=== PATIENT | female | born 1950 | race African-American/Black ===

== ENCOUNTER → 2017-10-11 | Outpatient (CLI) | payer BC ==
[~2017-10-11] MED LIST: ASCA500 PO; ATOR-14 PO; CHOL100027 PO; CRDCD180 PO; Citracal PO; ENOX40IN SQ; LISI-725 PO; MEGARED KRILL OIL PO; MULTTAB58 PO; OXYC-292 PO; Osteo Bi-Flex PO
--- NOTE | 2017-10-11 14:12 | MAMMOGRAPHY REPORT ---
BILATERAL DIGITAL SCREENING MAMMOGRAM TOMOSYNTHESIS WITH CAD: 10/11/2017 CLINICAL HISTORY: Routine screening. TECHNIQUE: Breast tomosynthesis in addition to standard 2D mammography was performed. Current study was also evaluated with a Computer Aided Detection (CAD) system. COMPARISON: Comparison is made to exams dated: 10/10/2016 mammogram, 10/01/2015 mammogram, 09/29/2014 mammogram, 09/25/2013 mammogram, 09/19/2012 mammogram - [facility], and 10/13/2011 mammogram - [facility]. BREAST COMPOSITION: The tissue of both breasts is heterogeneously dense, which may obscure small mas ses. FINDINGS: The parenchymal pattern is similar to prior mammograms. There are scattered stable benign -appearing round microcalcifications. No developing mass, architectural distortion or cluster of junior picious microcalcifications is seen in either breast. IMPRESSION: ACR BI-RADS CATEGORY 2: BENIGN There is no mammographic evidence of malignancy. A 1 year screening mammogram is recommended. The pa tient will receive written notification of the results. Approximately 10% of breast cancers are not detected with mammography. A negative mammographic report should not delay biopsy if a clinically suggestive mass is present. Cony Loredo M.D. ay/:10/11/2017 10:17:37 Senior [employer] Net Developer: Joseph SERRANO)(Rudy), [facility] letter sent: Normal 1/2 BI-RADS Code: ACR BI-RADS Category 2: Benign
== END | disposition home or self-care (01) ==
LOC: C.MAMM 09:47
PROVIDERS: ATTEND Family Medicine
DX: Z12.31 Encounter for screening mammogram for malignant neoplasm of breast (principal)

== ENCOUNTER → 2017-12-02 | Outpatient (CLI) | payer BC ==
--- NOTE | 2017-12-02 12:28 | DIAGNOSTIC IMAGING REPORT ---
CHEST 2 VIEWS ROUTINE CLINICAL HISTORY: 67 years-old Female presenting with COUGH. TECHNIQUE: PA and lateral views of the chest were obtained. COMPARISON: 11/05/2012. FINDINGS: Cardiomediastinal silhouette normal. Lungs and pleural spaces clear. Osseous structures normal. Upper abdomen normal. IMPRESSION: 1. No acute cardiopulmonary disease. Electronically signed by: Aries Simon M.D. 12/02/2017 12:27 PM Dictated Date/Time: 12/02/2017 12:26 PM
== END | disposition home or self-care (01) ==
LOC: C.RAD 12:07
PROVIDERS: ATTEND Family Medicine
DX: R05 Cough (principal)

== ENCOUNTER 2018-01-30 05:11 | Inpatient (IN) | payer BC, OTHER ==
[2018-01-11 09:01] VITALS: BMI 27.0
--- NOTE | 2018-01-11 09:36 | PAT Medication Instructions ---
Service Date Jan 11, 2018. Current Home Medication List Ascorbic Acid (Ascorbic Acid), 500 MG PO QAM Atorvastatin (Lipitor), 10 MG PO QAM Calcium Carbonate-Vitamin D (Calcium + D), 2 TAB PO QAM Cholecalciferol (Vitamin D-3), 1 TAB PO QAM Oawtqzomngy-Iqqpxfifxug-In Cho (Glucosamine Chondroitin &), 1 TAB PO QAM Lisinopril (Zestril), 20 MG PE PO QAM Metoprolol Succinate (Metoprolol Succinate ER), 1 TAB PO QAM Multiple Vitamin (Multivitamin), 1 TAB PO QAM Medication Instructions For Your Scheduled Surgery - Hold the following medications 2 weeks prior to surgery: Yyirwvbsfch-Gavfkdheguq-Kz Cho (Glucosamine Chondroitin &), 1 TAB PO QAM - Hold the following medications the morning of surgery: Multiple Vitamin (Multivitamin), 1 TAB PO QAM Lisinopril (Zestril), 20 MG PE PO QAM Cholecalciferol (Vitamin D-3), 1 TAB PO QAM Calcium Carbonate-Vitamin D (Calcium + D), 2 TAB PO QAM Ascorbic Acid (Ascorbic Acid), 500 MG PO QAM - Take the following medications the morning of surgery with a sip of water: Atorvastatin (Lipitor), 10 MG PO QAM Metoprolol Succinate (Metoprolol Succinate ER), 1 TAB PO QAM Amlodipine 10mg daily If you have any questions please call us at [phone] or [phone] or [phone]
[2018-01-11 10:18] LABS: BASO % 0.6 %; BASO ABS # 0.04 K/uL (0-0.2); EOS % 1.9 %; EOS ABS # 0.13 K/uL (0-0.5); HEMATOCRIT 44.7 % (37-47); HEMOGLOBIN 15.2 g/dL (12.0-16.0); IG# 0.01 K/uL (0.00-0.02); LYMPH % 28.1 %; LYMPH ABS # 1.89 K/uL (1.2-3.4); MEAN CELL VOLUME 86.8 fL (80-100); MEAN CORPUSCULAR HEMOGLOBIN 29.5 pg (25-34); MEAN PLATELET VOLUME 10.5 fL (7.4-10.4); MONO % 6.7 %; MONO ABS # 0.45 K/uL (0.11-0.59); NEUT % 62.6 %; NEUT ABS # 4.21 K/uL (1.4-6.5); PLATELET COUNT 194 K/uL (130-400); RED CELL DISTRIBUTION WIDTH CV 15.5 % (11.5-14.5); RED CELL DISTRIBUTION WIDTH SD 49.8 fL (36.4-46.3); WHITE BLOOD COUNT 6.73 K/uL (4.8-10.8)
[2018-01-11 10:26] LABS: PTT PATIENT 27.5 SECONDS (21.0-31.0)
[2018-01-11 10:59] LABS: HEMOGLOBIN A1C 6.3 % (4.5-5.6)
[2018-01-11 11:27] LABS: ALBUMIN 3.9 gm/dl (3.4-5.0); CALCIUM 9.9 mg/dl (8.5-10.1); CREATININE 1.1 mg/dl (0.60-1.20); POTASSIUM 3.5 mmol/L (3.5-5.1)
--- NOTE | 2018-01-18 10:04 | HISTORY & PHYSICAL EXAMINATION ---
DATE OF ADMISSION: 01/30/2018 CHIEF COMPLAINT: Right knee pain. HISTORY OF PRESENT ILLNESS: Ms. Guerra is a 67-year-old female with a 2-3 month history of worsening right knee pain. The patient rates her pain at 4/10. She has pain with her daily activities. She has limited standing and walking tolerance. Pain is worse with weightbearing. The patient has had Tylenol and home exercise program which she has failed. She is now scheduled for right knee replacement. PAST MEDICAL HISTORY: Hypertension. She denies heart disease, diabetes or DVT. PAST SURGICAL HISTORY: Left TKA and hysterectomy. SOCIAL HISTORY: The patient rarely drinks alcohol. She denies current tobacco use. She lives in a single story home. She is and retired. FAMILY HISTORY: Negative for DVT. MEDICATIONS: Amlodipine 10 mg daily, atorvastatin 10 mg daily, lisinopril 20 mg daily, metoprolol 25 mg daily. ALLERGIES: SULFA, PENICILLIN, CEPHALEXIN, METHIMAZOLE, AND TRIMETHOPRIM. REVIEW OF SYSTEMS: See HPI. Ten other systems reviewed, all negative. PHYSICAL EXAMINATION: VITAL SIGNS: Height 5 foot 4 inches, weight 158 pounds, BMI 27. GENERAL: This is a well-developed, well-nourished -Serbian female who is alert and oriented x3. Mood and affect are appropriate. HEENT: Normocephalic, atraumatic. Mucous membranes are moist and intact. She does have a palpable thyroid goiter. NECK: Supple without lymphadenopathy. HEART: Regular rate and rhythm without murmurs, rubs or gallops. LUNGS: Clear to auscultation without wheezes or rhonchi. ABDOMEN: Soft and nontender. Bowel sounds are equal and active. EXTREMITIES: No ecchymosis, redness or warmth. Thigh and calf are soft and nontender. She has neutral alignment. Range of motion is from 0-120 degrees. She has no laxity. She is neurovascularly intact with +5/5 strength. IMPRESSION: Degenerative joint disease, right knee. PLAN: The patient will be admitted for a right total knee arthroplasty. We will plan on aspirin for DVT prophylaxis. She will have [facility] for home physical therapy upon discharge.
[2018-01-30] VITALS (9 sets, daily range): BP systolic 104–158; BP diastolic 66–99; PULSE 76–107; TEMP 36.4–36.8; O2SAT 97–100; Ht 162.6 cm; Wt 71.0 kg
[~2018-01-30] VITALS: Ht 162.6 cm; Wt 71.0 kg
[~2018-01-30 05:11] MED LIST changes: +AMLO-114 PO; -ASCA500 PO; +ASCO500T16 PO; -ATOR-14 PO; +ATOR10TA82 PO; +CALC600T9 PO; -CHOL100027 PO; +CHOL200027 PO; -CRDCD180 PO; -Citracal PO; -ENOX40IN SQ; +GLUCTAB32 PO; -MEGARED KRILL OIL PO; -OXYC-292 PO; -Osteo Bi-Flex PO; +TPRSR/25 PO
[2018-01-30] MEDS ORDERED: ROPIVACAINE 5MG/ML 30 ML 150 MG, BUPIVACAINE 0.5% MPF INJ 30 ML, EpINEphrine HCL INJ 0.... INFIL SCH ×8 (06:00)
[2018-01-30] MEDS ORDERED: METOCLOPRAMIDE HCL 10 MG TAB PO SCH (06:00)
[2018-01-30] MEDS ORDERED: FAMOTIDINE 20 MG TAB PO SCH (06:00)
[2018-01-30] MEDS ORDERED: GABAPENTIN 300 MG CAP PO SCH (06:00)
[2018-01-30] MEDS ORDERED: ACETAMINOPHEN 500 MG TAB PO SCH (06:00)
[2018-01-30] MEDS ORDERED: DEXAMETHASONE 4 MG TAB PO SCH (06:00)
[2018-01-30] MEDS ORDERED: LACTATED RINGER'S 1000ML 500 ML IV SCH (06:00)
[2018-01-30] MEDS ORDERED: CLINDAMYCIN 600 MG/54 ML D5W 54 ML IV SCH (06:00)
[2018-01-30] MEDS ORDERED: LACTATED RINGER'S 1000ML 1,000 ML IV SCH (06:00)
[2018-01-30] MEDS ORDERED: BUPIVACAINE 0.5 % 5 MG/1 ML PF 10ML VIAL ONE (06:22)
[2018-01-30] MEDS ORDERED: BUPIVACAINE 0.25% 30 ML VIAL ONE (06:22)
[2018-01-30] MEDS ORDERED: MIDAZOLAM HCL 1 MG/ML 2ML VIAL ONE (06:51)
[2018-01-30] MEDS ORDERED: ORTHO JOINT ANESTHETIC ONE (06:57)
[2018-01-30] MEDS ORDERED: BACITRACIN 50000 UNIT VIAL ONE (06:57)
[2018-01-30] MEDS ORDERED: POVIDONE-IODINE OP SOLN 30 ML BTL ONE (06:57)
--- NOTE | 2018-01-30 07:05 | History & Physical Bridge Note ---
H&P Re-Evaluation Bridge Note: I have examined the patient, reviewed the History & Physical and in the interval since the performance of the History & Physical I have noted the following changes of clinical significance: No changes noted
[2018-01-30] MEDS ORDERED: LIDOCAINE HCL 2% 2 ML VIAL (20MG/ML) ONE (08:11)
[2018-01-30] MEDS ORDERED: PROPOFOL IV EMULSION 10 MG/ML 20 ML VIAL IV ONE ×2 (08:11→08:14)
--- NOTE | 2018-01-30 08:14 | [facility] Operative Report ---
Operative Report Operative Date Jan 30, 2018. Pre-Operative Diagnosis Right knee degenerative joint disease Post-Operative Diagnosis Right knee degenerative joint disease Procedure(s) Performed Right Total Knee Arthroplasty utilizing journey to patient matched total knee arthroplasty utilizing size 4 femur 3 tibia 15 Rere [address] Rodriguez Community Health Coordinator Surgeon(s) Alberto Ceja PA-C Estimated Blood Loss 5 ml Findings Patient presents with severe end-stage tricompartmental degenerative joint disease varus alignment subchondral sclerosis osteophyte formation subchondral cystic changes no response to conservative therapy including injections anti- inflammatories relative rest activity modification Specimens A: Right knee bone and tissue Anesthesia Type MAC Spinal Regional Complication(s) none Disposition Recovery Room / PACU Indications Patient presents after failing attempts to conservative management x-rays will be able to subchondral sclerosis marginal osteophytes cystic changes varus alignment bone the bone changes medial compartment patellofemoral compartment patient presents for total knee arthroplasty Description of Procedure After proper prepping and draping of the Right lower extremity anterior midline incision was made over the region of the extensor extensor mechanism after meticulous hemostasis was obtained and maintained in subcutaneous tissues a medial parapatellar incision was made The patella was subluxed lateralward the medial lateral gutter were cleaned from any hypertrophic synovitis and scar tissue of the distal femoral block was placed and the distal femoral osteotomy cut was made subsequently the chamfers anterior and posterior osteotomy cuts were made utilizing the 4-in-1 block the tibia was subsequently subluxed anteriorward medial and ateral meniscal remnants were excised in their entirety remnants of the anterior and posterior cruciate ligaments were excised in their entirety excellent exposure of the proximal tibia was obtained the tibial osteotomy guide was placed on the proximal tibial osteotomy cut was made once again the knee was irrigated with copious amounts of sterile saline solution the patella was subsequently everted lateralward thickened scar tissue around the patella was removed the patella was subsequently cut utilizing a freehand technique and was drilled prepared for final preparation and placement of patella socially flexion-extension gaps were checked and the equal and symmetric trials were placed to the appropriate femoral and tibial trials with poly-spacer being placed for equal flexion and extension gaps and full range of motion including extension to 0 and flexion to 140 the trial components after having been taken to recovery range of motion was subsequently removed meticulous hemostasis was obtained and maintained subsequently a knee block injection of joint cocktail including ropivacaine 0.5% 150 mg. Bupivacaine 0.5 % epinephrine 1-200,030 mL's toradol 30 mg dexamethasone 4 mg ketamine 10 mg clonidine 100 micrograms normal saline solution 30 mg was infiltrated into the soft tissues of the posterior knee medial lateral gutters and periosteal synovium special attention was paid to protect neurovascular structures at all times subsequently trial components having been removed the knee was irrigated with sterile saline solution. debris was removed the proximal tibia was subsequently prepared and was made ready for the placement of the tibial component tibial component was also cemented and tamped into position the femoral component was subsequently placed and cemented in the position the patellar component was subsequently cemented in position because hemostasis once again obtained and maintained wound having been thoroughly irrigated with debridement and debridement lavage was performed as well as a medial parapatellar incision closed with #1 Vicryl in interrupted fashion subcutaneous was closed with #2 Vicryl skin was closed with skin clips. PA-C was necessary for prepping and drapping as well as wound closure of deep fascia Sub cutaneous tissue and skin and was necessary for the case. A sterile compressive dressing was placed patient was taken to recovery in stable condition of report dictated by Michael I attest to the content of the Intraoperative Record and any orders documented therein. Any exceptions are noted below. I attest to the content of the Intraoperative Record and any orders documented therein. Any exceptions are noted below.
[2018-01-30] MEDS ORDERED: EpHEDrine SULFATE INJ 50 MG/ML AMP IV PRN (08:45)
[2018-01-30] MEDS ORDERED: ATROPINE SULFATE 0.1 MG/ML 5ML SYR IV PRN (08:45)
[2018-01-30] MEDS ORDERED: TRAMADOL HCL 50 MG TAB PO PRN (09:00)
[2018-01-30] MEDS ORDERED: KETOROLAC TROMETHAMINE 15 MG/ML VIAL IV. PRN (09:00)
[2018-01-30] MEDS ORDERED: BISACODYL 10 MG SUPP PR PRN (09:00)
[2018-01-30] MEDS ORDERED: ZOLPIDEM TARTRATE 5 MG TAB PO PRN (09:00)
[2018-01-30] MEDS ORDERED: SOD PHOSPHATE/SOD BIPHOSPHATE ENEMA 132 ML BTL PR PRN (09:00)
[2018-01-30] MEDS ORDERED: MoRPHine SULFATE 2 MG/ML CARP IV PRN (09:00)
[2018-01-30] MEDS ORDERED: ONDANSETRON INJ 2 MG/ML 2 ML VIAL IV PRN (09:00)
[2018-01-30] MEDS ORDERED: ALUMINUM/MAGNESIUM/SIMETH (MAALOX MAX) 30 ML UDC PO PRN (09:00)
[2018-01-30] MEDS ORDERED: OXYCODONE HCL IR 5 MG TAB (IMMEDIATE RELEASE) PO PRN (09:00)
[2018-01-30] MEDS ORDERED: METOPROLOL SUCC 25MG EXT REL TAB PO SCH (09:00)
[2018-01-30] MEDS ORDERED: MAGNESIUM HYDROXIDE SUSP 30 ML UDC PO PRN (09:00)
--- NOTE | 2018-01-30 09:20 | DIAGNOSTIC IMAGING REPORT ---
RIGHT KNEE 2 VIEWS History: Right total knee arthroplasty. Degenerative arthritis. Postop. FINDINGS: The patient is status post a right total knee arthroplasty. The hardware is intact. No fracture or dislocation. Surgical drains are in place. IMPRESSION: Right total knee arthroplasty. No evidence for hardware complication. Electronically signed by: Alex Schwartz M.D. 01/30/2018 9:18 AM Dictated Date/Time: 01/30/2018 9:18 AM
--- NOTE | 2018-01-30 09:44 | Anesthesiology Progress Note ---
Anesthesia Post Op Note Date & Time Jan 30, 2018 at 09:44 Vital Signs Pain Intensity: 0 Vital Signs Past 12 Hours Date Time Temp Pulse Resp B/P (MAP) Pulse Ox O2 Delivery O2 Flow Rate FiO2 01/30/18 09:30 36.8 91 15 106/72 99 Nasal Cannula 2 01/30/18 09:25 90 25 100/71 99 Nasal Cannula 2 01/30/18 09:15 87 19 105/70 99 Nasal Cannula 2 01/30/18 09:05 93 16 101/69 100 Oxymask 10 01/30/18 08:55 36.2 99 16 90/54 97 Oxymask 10 01/30/18 05:49 36.8 107 18 158/99 98 Room Air Notes Mental Status: alert / awake / arousable, participated in evaluation Pt Amnestic to Procedure: Yes Nausea / Vomiting: adequately controlled Pain: adequately controlled Airway Patency, RR, SpO2: stable & adequate BP & HR: stable & adequate Hydration State: stable & adequate Neuraxial Anesthesia: was administered, sensory block is resolving Anesthetic Complications: no major complications apparent
[2018-01-30] MEDS ORDERED: MoRPHine SULFATE 4 MG/ML 1 ML CARP\\VIAL IV PRN (10:30)
[2018-01-30] MEDS ORDERED: MoRPHine SULFATE 10 MG/ML CARP/VIAL IV PRN (10:30)
[2018-01-30] MEDS: D5W AND 1/2NSS + 20MEQ KCL 1,000 ML IV SCH ×2 (12:09→20:43)
[2018-01-30] MEDS: TRANEXAMIC ACID INJ 1,000 MG x 2 Bags IV SCH ×4 (13:13→13:15)
[2018-01-30] MEDS: MULTIVITAMIN TAB PO SCH (13:14)
[2018-01-30] MEDS ORDERED: PNEUMOCOCCAL POLYSACCHARIDES 25 MCG/0.5 ML VIAL/SYR IM. ONE (13:45)
[2018-01-30] MEDS ORDERED: PNEUMOCOCCAL ADMINISTRATION CHARGE ONE (13:45)
[2018-01-30] MEDS: ASCORBIC ACID 500 MG TAB PO SCH (14:05)
[2018-01-30] MEDS: ACETAMINOPHEN 500 MG TAB PO SCH ×2 (14:06→20:43)
[2018-01-30] MEDS: CLINDAMYCIN IV 600 MG in DEXTROSE 5% 50ML 50 ML IV SCH ×2 (17:04→23:01)
[2018-01-30] MEDS: ASPIRIN 81 MG ECTAB PO SCH (20:42)
[2018-01-30] MEDS: DOCUSATE SODIUM 100 MG CAP PO SCH (20:43)
[2018-01-30] MEDS ORDERED: SENNA 8.6 MG TAB PO SCH (21:00)
[2018-01-31 03:23] VITALS: BP 118/76; PULSE 87; TEMP 36.5; O2SAT 99
[2018-01-31] MEDS: ACETAMINOPHEN 500 MG TAB PO SCH (05:38)
[2018-01-31] MEDS: D5W AND 1/2NSS + 20MEQ KCL 1,000 ML IV SCH (05:38)
[2018-01-31 06:09] LABS: HEMATOCRIT 37.8 % (37-47); HEMOGLOBIN 12.6 g/dL (12.0-16.0); MEAN CELL VOLUME 85.7 fL (80-100); MEAN CORPUSCULAR HEMOGLOBIN 28.6 pg (25-34); MEAN CORPUSCULAR HGB CONC 33.3 g/dl (32-36); PLATELET COUNT 186 K/uL (130-400); RED CELL DISTRIBUTION WIDTH CV 15.4 % (11.5-14.5); WHITE BLOOD COUNT 18.01 K/uL (4.8-10.8)
[2018-01-31 06:46] LABS: CALCIUM 9.1 mg/dl (8.5-10.1); CREATININE 0.92 mg/dl (0.60-1.20)
--- NOTE | 2018-01-31 07:22 | Orthopedic Progress Note ---
Orthopedic Progress Note Date of Service Jan 31, 2018. Subjective Post OP Day: 1 (right TKA) Reports: feeling well, pain controlled w PO medications, Denies: complaints, chest pain, SOB, nausea / vomiting, light headedness, calf pain Objective calves soft nontender, N/V intact, capillary refill less than 2 sec., dressing C /D/I, A&O x3, toes mobile, hemovac drainage (75cc/8 hours) Date Time Temp Pulse Resp B/P (MAP) Pulse Ox O2 Delivery O2 Flow Rate FiO2 01/31/18 03:23 36.5 87 14 118/76 (90) 99 Room Air 01/30/18 23:20 36.7 89 14 117/73 (88) 97 Room Air 01/30/18 19:33 36.7 96 17 112/66 (81) 98 Room Air 01/30/18 19:20 Room Air 01/30/18 17:39 Room Air 01/30/18 15:53 36.8 89 17 114/74 (87) 97 Room Air 01/30/18 12:59 92 17 116/73 (87) 99 Nasal Cannula 2.0 01/30/18 11:50 76 16 104/68 (80) 100 01/30/18 10:52 84 16 106/69 (81) 99 Nasal Cannula 2.0 01/30/18 10:20 36.4 79 16 116/71 (86) 98 Nasal Cannula 2.0 01/30/18 09:50 97 Nasal Cannula 2.0 01/30/18 09:50 36.4 85 20 112/72 (85) 97 Nasal Cannula 2.0 01/30/18 09:50 97 Nasal Cannula 2.0 01/30/18 09:30 36.8 91 15 106/72 99 Nasal Cannula 2 01/30/18 09:25 90 25 100/71 99 Nasal Cannula 2 01/30/18 09:15 87 19 105/70 99 Nasal Cannula 2 01/30/18 09:05 93 16 101/69 100 Oxymask 10 01/30/18 08:55 36.2 99 16 90/54 97 Oxymask 10 Laboratory Results 24 Hours: Test 01/31/18 05:43 Hematocrit 37.8 % Hemoglobin 12.6 g/dL Prothromb Time International Ratio 1.0 Prothrombin Time 10.7 SECONDS Assessment & Plan Assessment: POD #1 s/p Right TKA pt/ot dvt proph with genaro/scd/asa plan for dc home with HHPT with [facility], likely after PT today Discharge Planning Discharge Planning: home with home health DVT Prophylaxis: TEDs, SCDs, ASA Therapy: Physical Therapy
--- NOTE | 2018-01-31 07:24 | Discharge Instructions ---
Discharge Instructions Date of Service Jan 31, 2018. Admission Reason for Admission: Right Knee Osteoarthritis Discharge Discharge Diagnosis / Problem: right total knee replacement Discharge Goals Goal(s): Decrease discomfort, Improve function, Increase independence Activity Recommendations Activity Limitations: as noted below Weightbearing Status: Right weightbearing (as tolerated) . Instructions / Follow-Up Instructions / Follow-Up ACTIVITY RECOMMENDATIONS: SELF CARE INSTRUCTIONS AFTER TOTAL KNEE REPLACEMENT A. You may need to continue a physical therapy program after discharge from the hospital. There are several options available to you. Your doctor will assist you in selecting the best one for you. 1. An out-patient facility 2 to 3 times a week for therapy or home therapy. 2. Continue working on all exercises taught to you in the hospital. Your goals should be to increase bending of your knee to 90 degrees and beyond and to fully straighten your knee. B. You may progress at your own pace from walking with a walker or crutches to a cane; then to no assistive devices. C. Make walking a part of your daily routine. Be up as much as comfortable with rest periods throughout the day. Rest with leg elevation is very important. Use the ice wrap frequently for the first 3-4 weeks. D. There are no restrictions on activities. You may ride in a car, shop, participate in government contracts manager and all social activities. E. Wear the long elastic stockings (FRANKY hose) 20 hours a day for 2 weeks after surgery. They can be removed several times a day for laundering and for a bath. F. You may shower, no tub baths until cleared by your doctor. SPECIAL CARE INSTRUCTIONS: VERY IMPORTANT TO READ AND REVIEW A. There are a few signs you need to watch for after you are home. Call [facility] [place] if you notice any of the followin. Increased severe knee pain. Some pain is expected especially when you exercise. 2. Increased swelling in your leg or knee; pain or swelling of the calf muscle in either lower leg. 3. Any fluid drainage from the incision. 4. Shortness of breath or chest pain. B. Please call [facility] at if you have any concerns or questions about your operation or recovery. The doctor or his nurse will return your call promptly. C. You must take antibiotics before dental work, bladder, bowel or other surgery. Your doctor will provide you with a permanent care to carry describing this precaution. IMPORTANT: * REMEMBER TO TAKE ASPIRIN, 81 MG, TWICE DAILY FOR 4 WEEKS UNLESS OTHERWISE DIRECTED. THIS IS YOUR BLOOD THINNER. * HIGH RISK PATIENTS MAY BE PRESCRIBED A STRONGER BLOOD THINNER. THIS WILL BE PROVIDED AT DISCHARGE. * CALL IF INCREASED PAIN, REDNESS, DRAINAGE OR FEVER GREATER THAT 101. * WEAR FRANKY HOSE 20 HOURS PER DAY FOR 2 WEEKS. * DERMABOND Prineo- This is a mesh tape dressing that is covered with glue. It should remain in place until the incision is properly healed, usually 10-14 days. This dressing is designed to naturally slough off. You may trim the excess mesh tape as it peels off. Incision may be briefly wet in a shower. Dry immediately by blotting with a clean, dry towel. Do not bath or swim until instructed by your doctor. Do not scratch, rub, or pick at the dressing. Do not apply any topical ointments or lotions until dressing is completely removed and/or instructed by your doctor. There may be a small piece of suture material at one end of your incision. Do not pull or trim this. If it is bothersome or catching on clothing, you may cover it with a band-aid. FOLLOW UP VISIT: If appointment is not already scheduled: Please call [facility] [place] to make a follow-up appointment for 2 weeks after your surgery at . Current Hospital Diet Patient's current hospital diet: Regular Diet Discharge Diet Recommended Diet: Regular Diet Procedures Procedures Performed: Right Total Knee Arthroplasty utilizing journey to patient matched total knee arthroplasty utilizing size 4 femur 3 tibia 15 Rere 29 oval patella Pending Studies Studies pending at discharge: no Laboratory Results Hemoglobin A1c Test 01/11/18 09:50 Range/Units Estimated Average Glucose 134 mg/dl Hemoglobin A1c 6.3 H 4.5-5.6 % Medical Emergencies . Who to Call and When: Medical Emergencies: If at any time you feel your situation is an emergency, please call 911 immediately. . Non-Emergent Contact Non-Emergency issues call your: Primary Care Provider, Surgeon . "Provider Documentation" section prepared by Alberto Ceja. . [place] Drug Monitoring Program Search Results: patient reviewed within database, no issues identified
[2018-01-31] MEDS ORDERED: CLC100 PO (07:26)
[2018-01-31] MEDS ORDERED: ONDA-170 PO (07:26)
[2018-01-31] MEDS ORDERED: RXC5 PO (07:26)
[2018-01-31] MEDS ORDERED: ACET-24 PO (07:26)
[2018-01-31] MEDS ORDERED: ASPEC81 PO (07:26)
[2018-01-31 07:29] VITALS: BP 130/82; PULSE 84; TEMP 36.6; O2SAT 98
--- NOTE | 2018-01-31 07:30 | Discharge Summary ---
Orthopedic Discharge Summary Admission Date/Reason Jan 30, 2018 at 06:45 Right Knee Osteoarthritis. Discharge Date/Disposition Jan 31, 2018 Home with services Diagnosis Principal Diagnosis: Right knee osteoarthritis Procedure(s) Performed Right Total Knee Arthroplasty utilizing journey to patient matched total knee arthroplasty utilizing size 4 femur 3 tibia 15 Rere 29 oval patella Consultations NONE Medication Reconciliation New Medications: Ondansetron Hcl (Zofran) 8 Mg Tab 8 MG PO Q8 PRN for Nausea, #20 TAB Acetaminophen (Sb Non-Aspirin Extra Stre) 500 Mg Tab 1000 MG PO Q8H, #63 TAB Aspirin (Aspirin EC Low Dose) 81 Mg Ectab 81 MG PO BID for 30 Days, #60 TAB Docusate Sodium (Docusate Sodium) 100 Mg Cap 100 MG PO BID for 10 Days, #20 CAP Oxycodone HCl (Oxycodone HCl) 5 Mg Tab 5-10 MG PO Q4H PRN for Pain, #60 TAB Continued Medications: Amlodipine (Norvasc) 10 Mg Tab 10 MG PO DAILY, TAB Ascorbic Acid (Ascorbic Acid) 500 Mg Tab 500 MG PO QAM, TAB Atorvastatin (Lipitor) 10 Mg Tab 10 MG PO QAM, TAB Calcium Carbonate-Vitamin D (Calcium + D) 1 Tab Tab 2 TAB PO QAM Cholecalciferol (Vitamin D-3) 2,000 Unit Tab 1 TAB PO QAM Lisinopril (Zestril) 20 Mg Tab 20 MG PE PO QAM Metoprolol Succinate (Metoprolol Succinate ER) 25 Mg Tabcr 1 TAB PO QAM Multiple Vitamin (Multivitamin) 1 Tab Tab 1 TAB PO QAM, TAB Discontinued Medications: Aimuraldnzj-Dlfykcfeudy-Hu Cho (Glucosamine Chondroitin &) 1 Tab Tab 1 TAB PO QAM Admission Physical Exam As per Admitting History & Physical. Hospital Course Patient was a same day admission after undergoing a successful right TKA. She tolerated the procedure well. Post-operatively, her activity was progressed and well tolerated. Please refer to daily progress notes and PT notes for complete details. After exam on 01/31/18, patient felt to be stable for discharge home with HHPT, pain was well controlled, drain output within acceptable limits. Patient will f/u in the office in 2 weeks for further evaluation including x- rays and incision check, sooner if having any issues or concerns. Below are pertinent labs/studies during their hospital stay: Last Vital Signs Documentation Date Time Temp Pulse Resp B/P (MAP) Pulse Ox O2 Delivery O2 Flow Rate FiO2 01/31/18 03:23 36.5 87 14 118/76 (90 99 Room Air 01/30/18 12:59 2.0 Last Resulted CBC 01/31/18 05:43 Last Resulted BMP 01/31/18 05:43 Discharge Instructions ACTIVITY RECOMMENDATIONS: SELF CARE INSTRUCTIONS AFTER TOTAL KNEE REPLACEMENT A. You may need to continue a physical therapy program after discharge from the hospital. There are several options available to you. Your doctor will assist you in selecting the best one for you. 1. An out-patient facility 2 to 3 times a week for therapy or home therapy. 2. Continue working on all exercises taught to you in the hospital. Your goals should be to increase bending of your knee to 90 degrees and beyond and to fully straighten your knee. B. You may progress at your own pace from walking with a walker or crutches to a cane; then to no assistive devices. C. Make walking a part of your daily routine. Be up as much as comfortable with rest periods throughout the day. Rest with leg elevation is very important. Use the ice wrap frequently for the first 3-4 weeks. D. There are no restrictions on activities. You may ride in a car, shop, participate in passenger service agent and all social activities. E. Wear the long elastic stockings (FRANKY hose) 20 hours a day for 2 weeks after surgery. They can be removed several times a day for laundering and for a bath. F. You may shower, no tub baths until cleared by your doctor. SPECIAL CARE INSTRUCTIONS: VERY IMPORTANT TO READ AND REVIEW A. There are a few signs you need to watch for after you are home. Call [facility] [place] if you notice any of the followin. Increased severe knee pain. Some pain is expected especially when you exercise. 2. Increased swelling in your leg or knee; pain or swelling of the calf muscle in either lower leg. 3. Any fluid drainage from the incision. 4. Shortness of breath or chest pain. B. Please call [facility] at if you have any concerns or questions about your operation or recovery. The doctor or his nurse will return your call promptly. C. You must take antibiotics before dental work, bladder, bowel or other surgery. Your doctor will provide you with a permanent care to carry describing this precaution. IMPORTANT: * REMEMBER TO TAKE ASPIRIN, 81 MG, TWICE DAILY FOR 4 WEEKS UNLESS OTHERWISE DIRECTED. THIS IS YOUR BLOOD THINNER. * HIGH RISK PATIENTS MAY BE PRESCRIBED A STRONGER BLOOD THINNER. THIS WILL BE PROVIDED AT DISCHARGE. * CALL IF INCREASED PAIN, REDNESS, DRAINAGE OR FEVER GREATER THAT 101. * WEAR FRANKY HOSE 20 HOURS PER DAY FOR 2 WEEKS. * DERMABOND Prineo- This is a mesh tape dressing that is covered with glue. It should remain in place until the incision is properly healed, usually 10-14 days. This dressing is designed to naturally slough off. You may trim the excess mesh tape as it peels off. Incision may be briefly wet in a shower. Dry immediately by blotting with a clean, dry towel. Do not bath or swim until instructed by your doctor. Do not scratch, rub, or pick at the dressing. Do not apply any topical ointments or lotions until dressing is completely removed and/or instructed by your doctor. There may be a small piece of suture material at one end of your incision. Do not pull or trim this. If it is bothersome or catching on clothing, you may cover it with a band-aid. FOLLOW UP VISIT: If appointment is not already scheduled: Please call [facility] [place] to make a follow-up appointment for 2 weeks after your surgery at .
[2018-01-31] MEDS ORDERED: POLYETHYLENE (MIRALAX) 17 GM PACK PO SCH (09:00)
[2018-01-31] MEDS ORDERED: AMLODIPINE BESYLATE 5 MG TAB PO SCH (09:00)
[2018-01-31] MEDS ORDERED: CHOLECALCIFEROL 1000 INTER.UNIT TAB PO SCH (09:00)
[2018-01-31] MEDS ORDERED: ATORVASTATIN 10 MG TAB PO SCH (09:00)
[2018-01-31] MEDS ORDERED: CALCIUM 600MG + VIT D 400 IU TAB PO SCH (09:00)
[2018-01-31] MEDS: MULTIVITAMIN TAB PO SCH (09:56)
[2018-01-31] MEDS: DOCUSATE SODIUM 100 MG CAP PO SCH (09:56)
[2018-01-31] MEDS: ASCORBIC ACID 500 MG TAB PO SCH (09:57)
[2018-01-31] MEDS: ASPIRIN 81 MG ECTAB PO SCH (09:57)
[2018-01-31 10:15] VITALS: TEMP 36.6; O2SAT 98
[2018-01-31 10:25] VITALS: BP 143/87; PULSE 102; O2SAT 99
--- NOTE | 2018-01-31 10:49 | Anesthesiology Progress Note ---
Anesthesia Post Op Note Date & Time Jan 31, 2018 at 10:49 Vital Signs Vital Signs Past 12 Hours Date Time Temp Pulse Resp B/P (MAP) Pulse Ox O2 Delivery O2 Flow Rate FiO2 01/31/18 10:15 36.6 84 16 98 Room Air 01/31/18 07:29 36.6 84 16 130/82 (98) 98 Room Air 01/31/18 03:23 36.5 87 14 118/76 (90) 99 Room Air 01/30/18 23:20 36.7 89 14 117/73 (88) 97 Room Air Notes Mental Status: alert / awake / arousable, participated in evaluation Pt Amnestic to Procedure: Yes Nausea / Vomiting: adequately controlled Pain: adequately controlled Airway Patency, RR, SpO2: stable & adequate BP & HR: stable & adequate Hydration State: stable & adequate Neuraxial Anesthesia: sensory block resolved Anesthetic Complications: no major complications apparent
== END 2018-01-31 12:00 | disposition home health service (06) | DRG 470 ==
LOC: C.ACU 05:11 → C.3E 06:45 → ENRESERV 09:17
PROVIDERS: ADMIT Orthopaedic Surgery; ATTEND Orthopaedic Surgery
PROC: 0SRC0J9 Replacement of Right Knee Joint with Synthetic Substitute, Cemented, Open Approach (ICD-10-PCS; principal; 2018-01-30 07:15)
DX: M17.11 Unilateral primary osteoarthritis, right knee (principal); I10 Essential (primary) hypertension; Z79.899 Other long term (current) drug therapy; Z88.2 Allergy status to sulfonamides; Z88.1 Allergy status to other antibiotic agents; Z88.8 Allergy status to other drugs, medicaments and biological substances